=== PATIENT | male | born 1985 | race Caucasian/White ===

== ENCOUNTER 2023-04-15 10:35 | Day surgery (SDC) | payer BC ==
[2023-04-15 10:52] LABS: BASOPHILS ABSOLUTE AUTO 0.05 K/uL (0.00-0.10); BASOPHILS PERCENT AUTO 0.7 % (0.1-1.3); EOSINOPHILS ABSOLUTE AUTO 0.32 K/uL (0.00-0.40); EOSINOPHILS PERCENT AUTO 4.2 % (0.0-5.4); HEMATOCRIT 47.4 % (38.4-49.7); HEMOGLOBIN 16.3 g/dL (12.9-16.9); IMMATURE GRAN ABSOLUTE AUTO 0.03 K/uL (0.00-0.23); IMMATURE GRAN PERCENT AUTO 0.4 % (0.0-0.7); LYMPHOCYTES ABSOLUTE AUTO 1.96 K/uL (0.8-3.3); LYMPHOCYTES PERCENT AUTO 25.6 % (11.4-47.7); MEAN CORPUSCULAR HEMOGLOBIN 29.5 pg (31.6-35.5); MEAN CORPUSCULAR HGB CONC 34.4 g/dL (31.6-35.5); MEAN CORPUSCULAR VOLUME 85.9 fL (81.4-99.0); MONOCYTES ABSOLUTE AUTO 0.79 K/uL (0.20-0.90); MONOCYTES PERCENT AUTO 10.3 % (3.3-12.6); NEUTROPHILS PERCENT AUTO 58.8 % (40.0-78.1); PLATELET COUNT,PLT 199 K/uL (130-375); RED BLOOD CELL COUNT 5.52 M/uL (4.14-5.76); WHITE BLOOD CELL COUNT,WBC 7.7 K/uL (3.2-11.0)
[2023-04-15] MEDS ORDERED: Lactated Ringers 1,000 ML IV SCH (11:00)
[2023-04-15] MEDS ORDERED: Nozin Nasal Sanitizer NASBOTH ONE (11:00)
[2023-04-15 11:12] LABS: A/G RATIO 1.3 (1.2-2.2); ALANINE AMINOTRANSFERASE,ALT 39 U/L (12-78); ALBUMIN 4.4 g/dL (3.4-5.0); ALKALINE PHOSPHATASE 88 U/L (46-116); ANION GAP 14.2 mmol/L (5.0-14.0); ASPARTATE AMNIOTRANSFERASE,AST 24 U/L (15-37); BILIRUBIN TOTAL 0.8 mg/dL (0.2-1.0); BLOOD UREA NITROGEN,BUN 11 mg/dL (7-18); CALCIUM 9.2 mg/dL (8.5-10.1); CARBON DIOXIDE,CO2 26 mmol/L (21-32); CHLORIDE,CL 102 mmol/L (100-108); CREATININE 0.9 mg/dL (0.8-1.3); ESTIMATED GFR 113 mL/min (>60); GLUCOSE RANDOM 94 mg/dL (74-106); POTASSIUM,K 4.2 mmol/L (3.6-5.2); PROTEIN TOTAL,TP 7.9 g/dL (6.4-8.2); SODIUM,NA 138 mmol/L (140-148)
[2023-04-15] MEDS ORDERED: ceFAZolin 2 GM in Premix Bag 1 BAG IV ONE (11:30)
[2023-04-15] MEDS ORDERED: fentaNYL 100 MCG/2 ML SDV ONE ×2 (12:07→13:51)
[2023-04-15] MEDS ORDERED: Midazolam 1 MG/ML 2 ML SDV ONE ×2 (12:07→13:51)
[2023-04-15] MEDS ORDERED: Propofol 200 MG/20 ML SDV ONE ×2 (12:07→14:10)
[2023-04-15] MEDS ORDERED: Bupivacaine 0.5% 30 ML SDV ONE (12:32)
[2023-04-15 16:07] VITALS: BP 130/95; PULSE 70
== END 2023-04-15 16:40 | disposition home or self-care (01) ==
LOC: JP.SDS 10:35
PROVIDERS: ATTEND Specialist
DX: M75.41 Impingement syndrome of right shoulder (principal); M75.111 Incomplete rotator cuff tear or rupture of right shoulder, not specified as traumatic; G89.29 Other chronic pain; K21.9 Gastro-esophageal reflux disease without esophagitis; E66.9 Obesity, unspecified
CPT/HCPCS: 29822; 29826; 36415; 80053; 85025; A9270; J0690; J2250; J2704; J3010; J3490; J7120

== ENCOUNTER 2023-10-29 20:12 | Emergency (ER) | payer BC ==
[2023-10-29 20:34] VITALS: BP 133/85; PULSE 66
[2023-10-29] MEDS: Diphtheria,Pertussis(Acell),Tetanus Vaccine 0.5 ML Syringe IM ONE (20:46)
[2023-10-29] MEDS: Bacitracin Oint 1 GM U/D Packet TOP ONE (20:46)
[2023-10-29] MEDS: Lidocaine 1% 5 ML VIAL INJECT ONE (20:46)
== END 2023-10-29 21:39 | disposition home or self-care (01) ==
LOC: JP.ED 20:12
DX: S91.312A Laceration without foreign body, left foot, initial encounter (principal); Z86.16 Personal history of COVID-19; Z23 Encounter for immunization; W22.8XXA Striking against or struck by other objects, initial encounter
CPT/HCPCS: 12001; 90471; 90715; 99282-25; 99283

== ENCOUNTER 2024-06-09 07:59 | Day surgery (SDC) | payer BC ==
[~2024-06-09 07:59] MED LIST: Bupivacaine 0.25%/EPINEPHrine 1:200,000 30 ML SDV ONE
[2024-06-09] MEDS ORDERED: Succinylcholine 200 MG/10 ML MDV ONE (08:01)
[2024-06-09] MEDS ORDERED: Rocuronium 50 MG/5 ML Vial ONE (08:01)
[2024-06-09] MEDS ORDERED: Dexamethasone 4 MG/ML SDV ONE (08:01)
[2024-06-09] MEDS ORDERED: Propofol 200 MG/20 ML SDV ONE (08:01)
[2024-06-09] MEDS ORDERED: Neostigmine Methylsulfate 10 MG/10 ML MDV ONE (08:01)
[2024-06-09] MEDS ORDERED: Ondansetron 4 MG/2 ML SDV ONE (08:01)
[2024-06-09] MEDS ORDERED: Glycopyrrolate 0.2 MG/ML 5 ML MDV ONE (08:01)
[2024-06-09] MEDS ORDERED: fentaNYL 250 MCG/5 ML SDV ONE ×2 (08:03→10:23)
[2024-06-09 08:21] LABS: HEMATOCRIT 43.3 % (38.4-49.7); HEMOGLOBIN 15.5 g/dL (12.9-16.9); MEAN CORPUSCULAR HEMOGLOBIN 30.6 pg (31.6-35.5); MEAN CORPUSCULAR HGB CONC 35.8 g/dL (31.6-35.5); MEAN CORPUSCULAR VOLUME 85.4 fL (81.4-99.0); RED BLOOD CELL COUNT 5.07 M/uL (4.14-5.76); WHITE BLOOD CELL COUNT,WBC 6.4 K/uL (3.2-11.0)
[2024-06-09 08:42] LABS: A/G RATIO 1.2 (1.2-2.2); ALANINE AMINOTRANSFERASE,ALT 47 U/L (12-78); ALBUMIN 4.3 g/dL (3.4-5.0); ALKALINE PHOSPHATASE 82 U/L (46-116); ANION GAP 9.2 mmol/L (5.0-14.0); ASPARTATE AMNIOTRANSFERASE,AST 30 U/L (15-37); BILIRUBIN TOTAL 0.7 mg/dL (0.2-1.0); BLOOD UREA NITROGEN,BUN 13 mg/dL (7-18); CALCIUM 9.3 mg/dL (8.5-10.1); CARBON DIOXIDE,CO2 30 mmol/L (21-32); CHLORIDE,CL 102 mmol/L (100-108); EST CRCL DRUG DOSING (CG) 113.19 mL/min; ESTIMATED GFR 99 mL/min (>60); GLUCOSE RANDOM 95 mg/dL (74-106); POTASSIUM,K 3.8 mmol/L (3.6-5.2); PROTEIN TOTAL,TP 7.8 g/dL (6.4-8.2); SODIUM,NA 141 mmol/L (140-148)
[2024-06-09] MEDS: Lactated Ringers 1,000 ML IV SCH (08:59)
[2024-06-09] MEDS ORDERED: Sodium Chloride 0.9% 1,000 ML IV SCH (09:00)
[2024-06-09] MEDS: ceFAZolin 2 GM in Premix Bag 1 BAG IV ONE (10:05)
[2024-06-09] MEDS: Bupivacaine 0.25%/EPINEPHrine 1:200,000 30 ML SDV ONE (10:35)
[2024-06-09] MEDS ORDERED: Lactated Ringers 1,000 ML ONE (11:52)
[2024-06-09] MEDS: oxyCODONE 5 MG Tab PO ONE (13:21)
[2024-06-09] MEDS: Acetaminophen 500 MG Tab PO ONE (13:21)
[2024-06-09] MEDS: Tamsulosin 0.4 MG Cap.ER PO ONE (17:24)
[2024-06-09 17:30] VITALS: BP 120/69; PULSE 79
== END 2024-06-09 19:36 | disposition home or self-care (01) ==
LOC: JP.SDS 07:59 → JP.MS 14:10 → JP.SDS 19:36
PROVIDERS: ATTEND Surgery
DX: K40.20 Bilateral inguinal hernia, without obstruction or gangrene, not specified as recurrent (principal)
CPT/HCPCS: 36415; 49650; 80053; 85027; A9270; C1781; J0330; J0690; J1100; J1596; J2405; J2704; J2710; J3010; J7120; J3490